=== PATIENT | male | born 1945 | race Caucasian/White ===

== ENCOUNTER → 2016-10-03 | Outpatient (CLI) | payer OTHER ==
--- NOTE | 2016-10-03 13:19 | CT ---
CT Chest Without Contrast Indication: "Nodular density projecting between the left 6th and 7th anterior ribs." Recent onset of shortness of breath with exertion. Technique: 5 mm thick helically acquired slices were obtained through the chest utilizing low-dose pr otocol. Dose reduction techniques were utilized. Comparison: Report from [place] and lateral chest radiograph from [facility] dated September 23, 2016. The r adiographs were not submitted. Findings: Linear atelectasis versus scarring in the anterior segment left lower lobe adjacent to the major fissure may be the etiology for the finding on the recent chest radiograph. No suspicious nodul e or mass projecting in the region of the anterior left 6th and 7th ribs. Two round noncalcified probably benign pulmonary nodules are present in the right middle lobe and lef t lower lobe. The right middle lobe pulmonary nodule on image 174 of series 4 measures 4.5 x 4.5 mm a nd the left lower lobe subpleural nodule in the posterior segment on image 203 measures 4 x 4 mm. No suspicious spiculated or ground-glass lesions. Benign subpleural scarring versus atelectasis is prese nt in the periphery of the right lower lobe and minimal posterior dependent atelectasis is present in the basilar portion of the right lower lobe. The central airway is clear. No pulmonary fibrosis or emphysema. No bronchiectasis or central mucous plugging. A small layering right pleural effusion measures 1 cm in thickness. No loculated component. No left-s ided pleural effusion or pericardial effusion. The heart size is normal. A left anterior chest wall pacemaker has leads in the right atrium and righ t ventricle. The thoracic aorta is normal caliber with trace calcified plaque. The imaged portion of the upper abdomen is negative. Minimal multilevel degenerative disk disease. No compression fracture or bone lesion. Impression: 1. Benign atelectasis versus scarring in the left lower lobe likely corresponds to finding on recent chest radiograph. No suspicious pulmonary nodule or mass. 2. Small probably benign noncalcified pulmonary nodules in the right middle lobe and left lower lobe. Recommend follow up noncontrast chest CT in 12 months to assure stability (low-dose protocol). 3. Small simple right pleural effusion. 4. No evidence of CHF. Well-positioned dual-lead pacemaker.
== END ==
LOC: FIMAGING 10:00
PROVIDERS: ATTEND Nurse Practitioner Family
DX: J98.11 Atelectasis (principal); R92.8 Other abnormal and inconclusive findings on diagnostic imaging of breast; Z95.0 Presence of cardiac pacemaker

== ENCOUNTER 2016-10-22 06:09 | Emergency (ER) | payer OTHER ==
[2016-10-22 06:17] VITALS: RESP 16
--- NOTE | 2016-10-22 06:41 | EDPHY ---
H & P Stated Complaint: pt slipped/fell on ice this am, concerned he may have broken R 4th finger Time Seen by Provider: 10/22/16 06:23 HPI/ROS: CHIEF COMPLAINT: Finger pain HISTORY OF PRESENT ILLNESS: Patient is a 71-year-old man comes to the emergency department complaining of pain in his ring finger of his right hand. He tripped and fell an outstretched hand this morning. It appears to be deformed and possibly open fracture versus dislocation. He denies other injuries. He does take Coumadin after recent pacemaker placement. REVIEW OF SYSTEMS: Constitutional: denies: chills, fever, recent illness, recent injury EENTM: denies: blurred vision, double vision, nose congestion Respiratory: denies: cough, shortness of breath Cardiac: denies: chest pain, irregular heart rate, lightheadedness, palpitations Gastrointestinal/Abdominal: denies: abdominal pain, diarrhea, nausea, vomiting, blood streaked stools Genitourinary: denies: dysuria, frequency, hematuria, pain Musculoskeletal: See HPI Skin: denies: lesions, rash, jaundice, bruising Neurological: denies: headache, numbness, paresthesia, tingling, dizziness, weakness Hematologic/Lymphatic: denies: blood clots, easy bleeding, easy bruising Immunologic/allergic: denies: HIV/AIDS, transplant EXAM: GENERAL: Well-appearing, well-nourished and in no acute distress. HEAD: Atraumatic, normocephalic. EYES: Pupils equal round and reactive to light, extraocular movements intact, sclera anicteric, conjunctiva are normal. ENT: TMs normal, nares patent, oropharynx clear without exudates. Moist mucous membranes. NECK: Normal range of motion, supple without lymphadenopathy or JVD. LUNGS: Breath sounds clear to auscultation bilaterally and equal. No wheezes rales or rhonchi. HEART: Regular rate and rhythm without murmurs, rubs or gallops. ABDOMEN: Soft, nontender, normoactive bowel sounds. No guarding, no rebound. No masses appreciated. BACK: No CVA tenderness, no spinal tenderness, step-offs or deformities EXTREMITIES: Right ring finger with laceration/abrasion to medial aspect of PIP joint, deformity at that joint with ulnar angulation. Normal capillary refill distally, mild paresthesias distally. NEUROLOGICAL: Cranial nerves II through XII grossly intact. Normal speech, normal gait. 5/5 strength, normal movement in all extremities, normal sensation PSYCH: Normal mood, normal affect. SKIN: Warm, dry, normal turgor, no visible rashes or lesions. Source: Patient Exam Limitations: No limitations - Medical/Surgical History Hx Asthma: Yes Hx Chronic Respiratory Disease: No Hx Diabetes: No Hx Cardiac Disease: Yes Hx Renal Disease: No Hx Cirrhosis: No Hx Alcoholism: No Hx HIV/AIDS: No Hx Splenectomy or Spleen Trauma: No Other PMH: b knee scope; hernia repair; Asthma; dvt, hypertension, afib - Family History Significant Family History: No pertinent family hx - Social History Smoking Status: Never smoked Alcohol Use: Sober Drug Use: None Constitutional: Initial Vital Signs Heart Rate 63 10/22/16 06:14 Respiratory Rate 16 10/22/16 06:14 Blood Pressure 165/111 H 10/22/16 06:14 O2 Sat (%) 97 10/22/16 06:14 O2 Delivery Mode Room Air Allergies/Adverse Reactions: No Known Allergies Allergy (Verified 10/22/16 06:18) Home Medications: Medication Instructions Recorded Albuterol 11/17/14 Warfarin Sodium [Coumadin 5MG (RX)] 5 mg PO DAILY #30 tab 11/17/14 Cephalexin [Keflex] 500 mg PO TID #21 cap 10/22/16 Cozaar 10/22/16 Flecainide Acetate 10/22/16 Hydrocodone/APAP 5/325 [[place] 1 - 2 tab PO Q4H PRN #14 tab 10/22/16 5/325 (RX)] MAGNESIUM 10/22/16 Singulair 10/22/16 Medical Decision Making - Diagnostics Imaging: X-ray: Finger x-ray was obtained. I viewed the images myself on the PACS system. My interpretation of the images is: Dislocation anteriorly and. The radiologist interpretation is pending. X-ray: Repeat finger x-ray was obtained. I viewed the images myself on the PACS system. My interpretation of the images is: Successful reduction. The radiologist interpretation is pending. Procedures: Orthopedic reduction: The patient's right ring finger was anesthetized with digital block 0.5% bupivacaine. He tolerated this well. His PIP joint was then relocated with traction and flexion. After relocation he was successfully able to bend and extend his joint. Procedure: Splint placement. A finger splint was applied. After application of the splint I returned and re- examined the patient. The splint was adequately immobilizing the joint and distal to the splint the patient's circulation and sensation was intact. ED Course/Re-evaluation: After relocation and flexion of his joint it is apparent that this is an open injury. I have paged Hand surgery and we will irrigate very sleepy here in the emergency department and likely start antibiotics. Repeat x-rays of been ordered. 6:55 a.[address]. I spoke with Dr. Lamont Page recommends irrigation and Keflex splint and follow up with him in the clinic. Differential Diagnosis: Partial list of the Differential diagnosis considered include but were not limited to; dislocation, fracture, open fracture and although unlikely based on the history and physical exam, I also considered assault, infection, foreign body. I discussed these differential diagnoses and the plan with the patient as well as the usual and expected course. The patient understands that the diagnosis is provisional and that in medicine we are not always correct and that further workup is often warranted. Usual and customary warnings were given. All of the patient's questions were answered. The patient was instructed to return to the emergency department should the symptoms at all worsen or return, otherwise to followup with the physician as we discussed. - Data Points Medications Given: Discontinued Medications Cephalexin HCl (Keflex) 500 mg PO EDNOW ONE PRN Reason: Protocol Stop: 10/22/16 06:59 Last Admin: 10/22/16 07:10 Dose: 500 mg Departure - Departure Disposition: Home, Routine, Self-Care Clinical Impression: Open finger dislocation Qualifiers: Encounter type: initial encounter Qualifier Code: (S63.259A) Unspecified dislocation of unspecified finger, initial encounter Condition: Fair Instructions: Finger Dislocation (ED) Referrals: RHYS MULLER [Primary Care Provider] - As per Instructions Lamont Page MD [Medical Doctor] - As per Instructions Prescriptions: Cephalexin [Keflex] 500 mg PO TID #21 cap Hydrocodone/APAP 5/325 [[place] 5/325 (RX)] 1 - 2 tab PO Q4H PRN #14 tab PRN Reason: Pain, Moderate
[2016-10-22] MEDS ORDERED: CEPHALEXIN 500 MG CAP PO ONE (06:58)
[2016-10-22 07:23] VITALS: BP 145/77; PULSE 64; TEMP 98.1; O2SAT 96
--- NOTE | 2016-10-22 07:56 | DX ---
1. Right Fourth Finger, 3 views, 6:33 AM History: Pain post trauma, deformity Findings: There is a dorsolateral dislocation of the fourth PIP joint. There is mild shortening. Ther e is mild lateral angulation. On the lateral view to tiny bone flakes are seen dorsal to the neck of the middle phalanx, likely representing tiny avulsions. Impression: Fourth PIP joint dislocation 2. Right Fourth Finger, 3 views, 7:06 AM History: Post reduction Findings: The fourth PIP joint is relocated. 2 tiny avulsion fragments are present along the lateral aspect of the PIP joint and are likely to have their origin from the lateral head of the proximal pha lanx. The digit is swollen. Impression: Successful reduction of the fourth PIP joint.
== END 2016-10-22 07:22 | disposition home or self-care (01) ==
PROC: 0RSWXZZ Reposition Right Finger Phalangeal Joint, External Approach (ICD-10-PCS; principal; 2016-10-22)
DX: S63.284A Dislocation of proximal interphalangeal joint of right ring finger, initial encounter (principal); J45.909 Unspecified asthma, uncomplicated; I10 Essential (primary) hypertension; Z79.01 Long term (current) use of anticoagulants; W01.0XXA Fall on same level from slipping, tripping and stumbling without subsequent striking against object, initial encounter
CPT/HCPCS: 26770; 73140; 99284; L3925

== ENCOUNTER 2017-04-08 14:28 | Emergency (ER) | payer OTHER ==
[2017-04-08 14:40] VITALS: RESP 18; TEMP 97.5
--- NOTE | 2017-04-08 15:11 | EDPHY ---
H & P Stated Complaint: potassium pill stuck in throat/can't swallow water Time Seen by Provider: 04/08/17 14:59 HPI/ROS: CHIEF COMPLAINT: Pill stuck in throat HISTORY OF PRESENT ILLNESS: The patient is a 71-year-old man with a history of atrial fibrillation and pacemaker and recent ablation 3 weeks ago that involved a transesophageal ultrasound. He has had some irritation and mild bruising his throat since. He has not had difficulty swallowing or breathing however. Today he took his morning pills without any difficulty. He took his afternoon potassium about an hour ago and it got stuck in his esophagus. He is handling his secretions. He does not have any difficulty breathing. He denies chest pain. REVIEW OF SYSTEMS: Constitutional: denies: chills, fever, recent illness, recent injury EENTM: denies: blurred vision, double vision, nose congestion Respiratory: denies: cough, shortness of breath Cardiac: denies: chest pain, irregular heart rate, lightheadedness, palpitations Gastrointestinal/Abdominal: See HPI, denies: abdominal pain, diarrhea, nausea, vomiting, blood streaked stools Genitourinary: denies: dysuria, frequency, hematuria, pain Musculoskeletal: denies: joint pain, muscle pain Skin: denies: lesions, rash, jaundice, bruising Neurological: denies: headache, numbness, paresthesia, tingling, dizziness, weakness Hematologic/Lymphatic: denies: blood clots, easy bleeding, easy bruising Immunologic/allergic: denies: HIV/AIDS, transplant EXAM: GENERAL: Well-appearing, well-nourished and in no acute distress. HEAD: Atraumatic, normocephalic. EYES: Pupils equal round and reactive to light, extraocular movements intact, sclera anicteric, conjunctiva are normal. ENT: TMs normal, nares patent, oropharynx clear without exudates. Moist mucous membranes. NECK: Normal range of motion, supple without lymphadenopathy or JVD. LUNGS: Breath sounds clear to auscultation bilaterally and equal. No wheezes rales or rhonchi. HEART: Regular rate and rhythm without murmurs, rubs or gallops. ABDOMEN: Soft, nontender, normoactive bowel sounds. No guarding, no rebound. No masses appreciated. BACK: No CVA tenderness, no spinal tenderness, step-offs or deformities EXTREMITIES: Normal range of motion, no pitting or edema. No clubbing or cyanosis. NEUROLOGICAL: Cranial nerves II through XII grossly intact. Normal speech, normal gait. 5/5 strength, normal movement in all extremities, normal sensation PSYCH: Normal mood, normal affect. SKIN: Warm, dry, normal turgor, no visible rashes or lesions. Source: Patient Exam Limitations: No limitations - Personal History Current Tetanus/Diphtheria Vaccine: Yes - Medical/Surgical History Hx Asthma: Yes Hx Chronic Respiratory Disease: No Hx Diabetes: No Hx Cardiac Disease: Yes Hx Renal Disease: No Hx Cirrhosis: No Hx Alcoholism: No Hx HIV/AIDS: No Hx Splenectomy or Spleen Trauma: No Other PMH: b knee scope; hernia repair; Asthma; dvt, hypertension, afib/ pacemaker - Family History Significant Family History: No pertinent family hx - Social History Smoking Status: Never smoked Alcohol Use: Sober Drug Use: None Constitutional: Initial Vital Signs Temperature (C) 36.4 C 04/08/17 14:37 Heart Rate 83 04/08/17 14:37 Respiratory Rate 18 04/08/17 14:37 Blood Pressure 135/90 H 04/08/17 14:37 O2 Sat (%) 92 04/08/17 14:37 O2 Delivery Mode Room Air Allergies/Adverse Reactions: No Known Allergies Allergy (Verified 04/08/17 14:36) Home Medications: Medication Instructions Recorded Albuterol 11/17/14 Warfarin Sodium [Coumadin 5MG (RX)] 5 mg PO DAILY #30 tab 11/17/14 Cozaar 10/22/16 Flecainide Acetate 10/22/16 Hydrocodone/APAP 5/325 [[place] 1 - 2 tab PO Q4H PRN #14 tab 10/22/16 5/325 (RX)] MAGNESIUM 10/22/16 Singulair 10/22/16 Lasix 04/08/17 Potassium 04/08/17 Medical Decision Making ED Course/Re-evaluation: 3:30 p.m. the patient coughed out his pill and now can tolerate p. o.. He is eager to leave. He declines further workup or testing. Differential Diagnosis: Partial list of the Differential diagnosis considered include but were not limited to; esophageal foreign body, airway obstruction and although unlikely based on the history and physical exam, I also considered esophageal varices, web, stricture. I discussed these differential diagnoses and the plan with the patient as well as the usual and expected course. The patient understands that the diagnosis is provisional and that in medicine we are not always correct and that further workup is often warranted. Usual and customary warnings were given. All of the patient's questions were answered. The patient was instructed to return to the emergency department should the symptoms at all worsen or return, otherwise to followup with the physician as we discussed. Departure - Departure Disposition: Home, Routine, Self-Care Clinical Impression: Esophageal foreign body Qualifiers: Encounter type: initial encounter Qualified Code(s): T18.108A - Unspecified foreign body in esophagus causing other injury, initial encounter Condition: Good Instructions: Esophageal Foreign Body (ED) Referrals: UNKNOWN,PCP [Other] - As per Instructions Christian Mullins MD [place]] - As per Instructions
[2017-04-08] MEDS ORDERED: NITROGLYCERIN 0.4 MG BTL SL PRN (15:26)
[2017-04-08 15:55] VITALS: BP 128/93; PULSE 70; O2SAT 93
== END 2017-04-08 15:54 | disposition home or self-care (01) ==
DX: T18.108A Unspecified foreign body in esophagus causing other injury, initial encounter (principal); J45.909 Unspecified asthma, uncomplicated; I10 Essential (primary) hypertension; Z79.01 Long term (current) use of anticoagulants; Z95.0 Presence of cardiac pacemaker; X58.XXXA Exposure to other specified factors, initial encounter

== ENCOUNTER → 2017-09-04 | Outpatient (CLI) | payer OTHER | LOC: FIMAGING 07:11 | DX: R74.8 Abnormal levels of other serum enzymes (principal) ==

== ENCOUNTER → 2017-10-30 | Outpatient (CLI) | payer OTHER | LOC: FIMAGING 13:46 | DX: R91.1 Solitary pulmonary nodule (principal) ==